=== PATIENT | male | born 1965 ===

== ENCOUNTER 2018-02-06 18:43 | Emergency (ER) | payer BC ==
[2018-02-06 19:16] VITALS: BP 156/80; PULSE 81; RESP 20; TEMP 98.6; O2SAT 98
[2018-02-06] MEDS ORDERED: Naproxen 550 mg Tab PO STA (19:43)
[2018-02-06] MEDS ORDERED: Naproxen 550 mg Tab PO ONE (19:54)
--- NOTE | 2018-02-06 20:42 | C.PDOC ---
History Of Present Illness 52 y/o male presents to the ER complaining of pain to the upper back which has been present for the past 1 week. Patient states that the pain is worse with deep breathing and movement. Patient reports that he has been doing a lot of heavy lifting. Denies having fall, SOB, hemoptysis, fever, chills, and recent travel. Time Seen by Provider: 02/06/18 19:25 Chief Complaint (Nursing): Back Pain History Per: Patient History/Exam Limitations: no limitations Onset/Duration Of Symptoms: Days Current Symptoms Are (Timing): Still Present Severity: Moderate Past Medical History Reviewed: Historical Data, Nursing Documentation, Vital Signs Vital Signs: Last Vital Signs Temp 98.6 F 02/06/18 19:14 Pulse 81 02/06/18 19:14 Resp 20 02/06/18 19:14 BP 156/80 H 02/06/18 19:14 Pulse Ox 98 02/06/18 20:52 - Medical History PMH: No Chronic Diseases Other Surgeries: Hx of surgeries Family History: States: No Known Family Hx - Social History Hx Alcohol Use: No Hx Substance Use: No - Immunization History Hx Tetanus Toxoid Vaccination: No Hx Influenza Vaccination: No Hx Pneumococcal Vaccination: No Review Of Systems Except As Marked, All Systems Reviewed And Found Negative. Constitutional: Negative for: Fever, Chills Respiratory: Negative for: Shortness of Breath Musculoskeletal: Positive for: Back Pain Physical Exam - Physical Exam Appears: Non-toxic, No Acute Distress Skin: Normal Color, Warm, Dry, No Rash Head: Atraumatic, Normacephalic Eye(s): bilateral: Normal Inspection Nose: Normal Oral Mucosa: Moist Neck: Normal ROM, Supple Chest: Symmetrical Cardiovascular: Rhythm Regular, No Friction Rub, No Murmur Respiratory: Normal Breath Sounds, No Rales, No Rhonchi, No Wheezing Back: No CVA Tenderness, Other (right-sided parathoracic tenderness) Extremity: Normal ROM, No Tenderness, No Swelling Neurological/Psych: Oriented x3, Normal Speech, Normal Motor ED Course And Treatment O2 Sat by Pulse Oximetry: 98 (RA) Pulse Ox Interpretation: Normal Medical Decision Making Medical Decision Making: Plan: --Naproxen PO --Valium PO --CXR Disposition - Disposition Referrals: [facility] [Outside] Disposition: HOME/ ROUTINE Disposition Time: 20:39 Condition: GOOD Additional Instructions: Follow up with the medical doctor within 1-2 days without fail. Return if worsened. 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 - Scribe Statement The provider has reviewed the documentation as recorded by the Luz Vyas Provider Attestation All medical record entries made by the Luz were at my direction and personally dictated by me. I have reviewed the chart and agree that the record accurately reflects my personal performance of the history, physical exam, medical decision making, and the department course for this patient. I have also personally directed, reviewed, and agree with the discharge instructions and disposition.
--- NOTE | 2018-02-07 09:33 | RAD ---
Date of service: 02/06/2018 HISTORY: right sided pleuritic pain COMPARISON: No prior. TECHNIQUE: Chest PA and lateral FINDINGS: LUNGS: No active pulmonary disease. PLEURA: No significant pleural effusion identified. No pneumothorax apparent. CARDIOVASCULAR: Normal. OSSEOUS STRUCTURES: Thoracic osteophytosis VISUALIZED UPPER ABDOMEN: Normal. OTHER FINDINGS: None. IMPRESSION: No active disease. No pleural effusion or pneumothorax. No gross right rib pathology seen. Exuberant thoraco lumbar spondylosis noted
== END 2018-02-06 20:48 | disposition home or self-care (01) ==
LOC: C.ER 18:43
DX: S23.3XXA Sprain of ligaments of thoracic spine, initial encounter (principal); X50.9XXA Other and unspecified overexertion or strenuous movements or postures, initial encounter

== ENCOUNTER 2018-08-19 19:10 | Emergency (ER) | payer OTHER, BC ==
[2018-08-19 19:19] VITALS: RESP 18
[2018-08-19] MEDS ORDERED: Tramadol 25 mg PO STA (19:53)
[2018-08-19 20:06] VITALS: BP 152/92; PULSE 104; TEMP 99.5; O2SAT 96
--- NOTE | 2018-08-19 20:09 | C.PDOC ---
History Of Present Illness 52 year old male presents with left lower back pain radiating to the left hip, buttock, and thigh for the past 7 days. Patient has Hx of ankle surgery in 07/2018, states he has been wearing a heavy boot which he feel exacerbated the pain. Denies weakness, numbness, trauma, dysuria, hematuria, or incontinence of bladder, bowel. Time Seen by Provider: 08/19/18 19:23 Chief Complaint (Nursing): Hip Pain History Per: Patient History/Exam Limitations: no limitations Onset/Duration Of Symptoms: Days Current Symptoms Are (Timing): Still Present Recent travel outside of the [place]: No Past Medical History Reviewed: Historical Data, Nursing Documentation, Vital Signs Vital Signs: Last Vital Signs Temp 99.5 F 08/19/18 20:06 Pulse 104 H 08/19/18 20:06 Resp 18 08/19/18 20:06 BP 152/92 H 08/19/18 20:06 Pulse Ox 96 08/19/18 20:06 Family History: States: Unknown Family Hx - Social History Hx Alcohol Use: No Hx Substance Use: No - Immunization History Hx Tetanus Toxoid Vaccination: No Hx Influenza Vaccination: No Hx Pneumococcal Vaccination: No Review Of Systems Genitourinary: Negative for: Dysuria, Incontinence, Hematuria Musculoskeletal: Positive for: Back Pain Neurological: Negative for: Weakness, Numbness Physical Exam - Physical Exam Appears: Non-toxic Skin: Normal Color, Warm, Dry Head: Atraumatic, Normacephalic Eye(s): bilateral: Normal Inspection Back: Normal Inspection, Straight Leg Raising (Positive to left), Other (Tenderness with muscle spasm to left paralumbar area) Extremity: Normal ROM (x4), No Swelling Extremity: Bilateral: Atraumatic Pulses: Left Dorsalis Pedis: Normal, Right Dorsalis Pedis: Normal Neurological/Psych: Oriented x3, Normal Speech, Normal Motor, Normal Sensation Gait: Steady (w/ cane) ED Course And Treatment O2 Sat by Pulse Oximetry: 96 (Room air) Pulse Ox Interpretation: Normal Progress Note: Patient reports he is unable to take NSAIDs, tramadol and valium given. He reports improvement of pain, is ambulating with cane, vitals are s table, will discharge home with Rx and instructions to follow up with PMD. 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 - Scribe Statement The provider has reviewed the documentation as recorded by the Scribe Hilario Pelaez All medical record entries made by the Erinibemily were at my direction and personally dictated by me. I have reviewed the chart and agree that the record accurately reflects my personal performance of the history, physical exam, medical decision making, and the department course for this patient. I have also personally directed, reviewed, and agree with the discharge instructions and disposition.
== END 2018-08-19 20:26 | disposition home or self-care (01) ==
LOC: C.ER 19:10
DX: M54.5 Low back pain (principal)

== ENCOUNTER 2018-08-26 13:12 | Emergency (ER) | payer BC, OTHER ==
[2018-08-26] MEDS ORDERED: Dexamethasone 4 mg/1 ml IM STA (13:46)
[2018-08-26 14:59] VITALS: BP 124/84; PULSE 104; RESP 20; TEMP 99.3; O2SAT 97
--- NOTE | 2018-08-26 15:07 | C.PDOC ---
History Of Present Illness 52 year old male presents to ED with complaint of left lower back pain that the radiates into the left buttock and thigh. Patient states that he was here 3 weeks ago for the same complaint and discharged on Valium. Patient states that he is still in pain. Patient denies any numbness, weakness, and incontinence. Time Seen by Provider: 08/26/18 13:40 Chief Complaint (Nursing): Hip Pain History Per: Patient History/Exam Limitations: no limitations Onset/Duration Of Symptoms: Other (3 weeks) Current Symptoms Are (Timing): Still Present Past Medical History Reviewed: Historical Data, Nursing Documentation, Vital Signs Vital Signs: Last Vital Signs Temp 99.3 F 08/26/18 14:58 Pulse 104 H 08/26/18 14:58 Resp 20 08/26/18 14:58 BP 124/84 08/26/18 14:58 Pulse Ox 97 08/26/18 14:58 - Medical History PMH: No Chronic Diseases Surgical History: No Surg Hx Family History: States: Unknown Family Hx - Social History Hx Alcohol Use: No Hx Substance Use: No - Immunization History Hx Tetanus Toxoid Vaccination: No Hx Influenza Vaccination: No Hx Pneumococcal Vaccination: No Review Of Systems Constitutional: Negative for: Fever, Chills, Weakness Musculoskeletal: Positive for: Back Pain (left lower back pain that radiates into the left buttock), Leg Pain (left thigh) Neurological: Negative for: Weakness, Numbness, Dizziness Physical Exam - Physical Exam Appears: Non-toxic, No Acute Distress, Other (uncomfortable) Skin: Normal Color, Warm, Dry Head: Atraumatic, Normacephalic Neck: Normal ROM, Supple Chest: Symmetrical, No Deformity Respiratory: No Accessory Muscle Use Back: Paraspinal Tenderness (left lower back and left buttock) Extremity: Tenderness (left posterior thigh), Capillary Refill (<2 seconds) Neurological/Psych: Oriented x3, Normal Speech, Normal Cognition ED Course And Treatment O2 Sat by Pulse Oximetry: 97 (in RA) Progress Note: Patient given Toradol IM and Decadron IM. Patient told to follow up with PMD and given referral to pain management. Re-evaluation. Patient feels better. Discussed results and plan with patient who expresses understanding. All questions answered and there is agreement with the plan to discharge home with instructions. Patient stable for discharge. Return if symptoms persist or worsen. Disposition - Disposition Referrals: Kush Verduzco MD [Staff Provider] - Disposition: HOME/ ROUTINE Disposition Time: 15:04 Condition: STABLE Additional Instructions: Follow up with your PMD and media services specialist within 1-2 days. Return to ED if feel worse. 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 (Betty Lacy) - Scribe Statement The provider has reviewed the documentation as recorded by the Scribe (Betty Lacy) All medical record entries made by the Scribe were at my direction and personally dictated by me. I have reviewed the chart and agree that the record accurately reflects my personal performance of the history, physical exam, medical decision making, and the department course for this patient. I have also personally directed, reviewed, and agree with the discharge instructions and disposition.
== END 2018-08-26 15:25 | disposition home or self-care (01) ==
LOC: C.ER 13:12
DX: M54.32 Sciatica, left side (principal)
CPT/HCPCS: 96372; 99284; J1100; J1885